=== PATIENT | male | born 1960 | race Two or more races ===

== ENCOUNTER 2020-11-24 07:06 | Outpatient (CLI) | payer OTHER | END 2020-11-24 07:13 | disposition home or self-care (01) | LOC: SONOGRAMA 07:06 → MAMO-SONO 07:15 | PROVIDERS: ATTEND Internal Medicine Hematology & Oncology | DX: E04.2 Nontoxic multinodular goiter (principal); D51.0 Vitamin B12 deficiency anemia due to intrinsic factor deficiency; R73.01 Impaired fasting glucose; I10 Essential (primary) hypertension; F20.0 Paranoid schizophrenia; E03.8 Other specified hypothyroidism; D51.3 Other dietary vitamin B12 deficiency anemia; R80.8 Other proteinuria ==